=== PATIENT | male | born 1990 | race American Indian/Alaskan Native ===

== ENCOUNTER 2018-07-31 04:37 | Emergency (ER) | payer SELFPAY ==
[2018-07-31] MEDS ORDERED: Naproxen 500 MG TAB PO ONE (05:15)
--- NOTE | 2018-07-31 05:22 | ED PDOC ---
Lower Extremity Pain/Injury Time Seen by Provider: 07/31/18 04:56 Chief Complaint (Nursing): Lower Extremity Problem/Injury Chief Complaint (Provider): left knee pain History Per: Patient History/Exam Limitations: no limitations Onset/Duration Of Symptoms: Days (3) Current Symptoms Are (Timing): Still Present Additional Complaint(s): 27 y/o male presents for evaluation of left knee pain x 3 days. Patient states while at the gym on Monday he slipped on a towel while running and fell forward, injured left knee. Patient reports pain to left knee with weight beari ng, which improved Monday and Monday; states he did excessive walking Monday and at night noticed pain to return and left ankle to be swollen which prompted ED visit. Denies numbness/weakness left lower extremity, limitation of movement. Diclofenac taken with improvement of pain - Hip Description Of Injury: Tripped Past Medical History Reviewed: Historical Data, Nursing Documentation, Vital Signs Vital Signs: Last Vital Signs Temp 98 F 07/31/18 05:00 Pulse 74 07/31/18 05:00 Resp 16 07/31/18 05:00 BP 133/79 07/31/18 05:00 Pulse Ox 99 07/31/18 05:00 - Medical History PMH: No Chronic Diseases - Surgical History Other surgeries: right knee ACL repair - Family History Family History: States: No Known Family Hx - Home Medications Home Medications: Ambulatory Orders Medication Instructions Recorded Naproxen [Naprosyn] 500 mg PO Q12 PRN #14 tablet 07/31/18 - Allergies Allergies/Adverse Reactions: Allergies Allergy/AdvReac Type Severity Reaction Status Date / Time No Known Allergies Allergy Verified 07/31/18 05:06 Review of Systems ROS Statement: Except As Marked, All Systems Reviewed And Found Negative Musculoskeletal: Positive for: Leg Pain (right knee) Physical Exam - Reviewed Nursing Documentation Reviewed: Yes Vital Signs Reviewed: Yes - Physical Exam Appears: Positive for: Well, Non-toxic, No Acute Distress Head Exam: Positive for: ATRAUMATIC, NORMAL INSPECTION, NORMOCEPHALIC Skin: Positive for: Normal Color Pulses-Dorsalis Pedis (L): 2+ Pulses-Dorsalis Pedis (R): 2+ Pulses-Post. Tibialis (L): 2+ Pulses-Post. Tibialis (R): 2+ Extremity: Positive for: Normal ROM, Capillary Refill (<3 sec b/l LE). Negative for: Tenderness, Pedal Edema, Calf Tenderness Neurological/Psych: Positive for: Awake, Alert, Oriented (x3) - ECG O2 Sat by Pulse Oximetry: 99 - Other Rad xray right knee X-Ray: Viewed By Me X-Ray Interpretation: no acute findings - Progress ED Course And Treament: -xray right knee -naproxen PO Patient educated on findings, right knee placed in immobilizer. Crutches given with demonstration on light weight bearing Advised RICE rx Naproxen provided Return precautions given Disposition - Clinical Impression Clinical Impression: Left knee injury - Patient ED Disposition Is Patient to be Admitted: No Counseled Patient/Family Regarding: Studies Performed, Diagnosis, Need For Followup, Rx Given - Disposition Referrals: Saturnino Carlisle MD [Staff Provider] - [facility] [place] [facility] [Outside] Disposition: Routine/Home Disposition Time: 05:54 Condition: IMPROVED Prescriptions: Naproxen [Naprosyn] 500 mg PO Q12 PRN #14 tablet PRN Reason: Pain, Moderate (4-7) Instructions: Knee Pain
[2018-07-31 06:09] VITALS: BP 127/77; PULSE 64; RESP 14; TEMP 98.5; O2SAT 97
--- NOTE | 2018-07-31 10:17 | RAD ---
PROCEDURE: Left Knee Radiographs. HISTORY: injury COMPARISON: No prior. FINDINGS: BONES: No acute displaced fracture. JOINTS: No dislocation. JOINT EFFUSION: No significant joint effusion. OTHER FINDINGS: None. IMPRESSION: No acute displaced fracture, dislocation, or significant joint effusion identified. If symptoms persist, or if there is continued clinical concern, x-ray follow-up in 7-10 days should be considered.
== END 2018-07-31 06:17 | disposition home or self-care (01) ==
LOC: H.ER 04:37
DX: S89.92XA Unspecified injury of left lower leg, initial encounter (principal); W01.0XXA Fall on same level from slipping, tripping and stumbling without subsequent striking against object, initial encounter